=== PATIENT | male | born 1985 | race African-American/Black ===

== ENCOUNTER 2024-10-07 20:54 | Emergency (ER) | payer BC ==
[~2024-10-07] VITALS: Ht 182.9 cm; Wt 70.3 kg
[2024-10-07] MEDS: IV NS 0.9% 1,000 ML BAG IV ONE (22:30)
[2024-10-07] MEDS ORDERED: IBUPROFEN 600 MG TABLET ONE (22:46)
[2024-10-07] MEDS: IBUPROFEN 600 MG TABLET PO ONE (22:51)
[2024-10-07 22:58] LABS: CALCIUM, SERUM 8.9 mg/dL (8.5-10.1); CREATININE 1.3 mg/dL (0.6-1.3); SODIUM SERUM 137.0 mmol/L (136-145); UREA NITROGEN, BLOOD 17.0 mg/dL (7-18)
[2024-10-07 23:05] LABS: ASPARTATE AMINOTRANSFERASE 26.0 U/L (15-37); TOTAL PROTEIN, SERUM 7.8 g/dL (6.4-8.2)
[2024-10-07 23:06] LABS: INR 1.03 (0.91-1.10)
[2024-10-07 23:13] LABS: PLATELET COUNT (AUTO) 227 K/uL (150-450); RED BLOOD CELL COUNT(AUTO) 4.42 MIL/uL (4.5-6.0); RED CELL DISTRIBUTION WIDTH 13.6 % (11.5-15.0); WHITE BLOOD COUNT (AUTO) 5.2 K/uL (4.3-11.0)
[2024-10-07 23:18] LABS: APPEARANCE,URINE CLEAR (CLEAR); BLOOD, URINE NEGATIVE Ery/uL (NEGATIVE); LEUKOCYTE ESTERASE ,URINE TRACE (NEGATIVE); NITRITE, URINE NEGATIVE (NEGATIVE); UGLUCOSE NEGATIVE (NEGATIVE)
[2024-10-07 23:19] LABS: LACTIC ACID 0.6 mmol/L (0.4-2.0)
[2024-10-07 23:19] LABS: ADD URINE CULTURE NO; SQUAMOUS EPITHELIAL CELL,UR Few /HPF (None Seen)
[2024-10-08 01:23] VITALS: BP 122/76; TEMP 98.8; O2SAT 98
== END 2024-10-08 01:35 | disposition home or self-care (01) ==
LOC: ER 21:01
DX: R50.9 Fever, unspecified (principal); R05.9 Cough, unspecified; R53.81 Other malaise; Z86.2 Personal history of diseases of the blood and blood-forming organs and certain disorders involving the immune mechanism
CPT/HCPCS: 99285; 96360; 71045; 93005; 87804 ×2; 84145; 85025; 80048; 87040 ×2; 87086; 83605; 80076; 81001; 36415; 85730; 87070; 87205; J7030 ×2

== ENCOUNTER 2024-10-13 09:40 | Emergency (ER) | payer BC ==
[~2024-10-13] VITALS: Ht 185.4 cm; Wt 83.9 kg
[2024-10-13 10:17] LABS: PLATELET COUNT (AUTO) 276 K/uL (150-450); RED BLOOD CELL COUNT(AUTO) 4.42 MIL/uL (4.5-6.0); RED CELL DISTRIBUTION WIDTH 13.3 % (11.5-15.0); WHITE BLOOD COUNT (AUTO) 4.5 K/uL (4.3-11.0)
[2024-10-13 10:24] LABS: CALCIUM, SERUM 8.8 mg/dL (8.5-10.1); CREATININE 1.4 mg/dL (0.6-1.3); SODIUM SERUM 138.0 mmol/L (136-145); UREA NITROGEN, BLOOD 17.0 mg/dL (7-18)
[2024-10-13] MEDS: IV NS 0.9% 500 ML BAG IV ONE (11:00)
[2024-10-13 11:02] LABS: MONOTEST NEGATIVE (NEGATIVE)
[2024-10-13] MEDS ORDERED: AMOX-430 PO (11:09)
[2024-10-13 12:24] VITALS: BP 139/84; TEMP 99.8; O2SAT 99
== END 2024-10-13 12:25 | disposition home or self-care (01) ==
LOC: ER 09:45
DX: I88.9 Nonspecific lymphadenitis, unspecified (principal); R20.2 Paresthesia of skin; F17.200 Nicotine dependence, unspecified, uncomplicated
CPT/HCPCS: 99283; 96360; 85025; 80048; 86308; 36415; J7030